=== PATIENT | female | born 1960 | race Caucasian/White ===

== ENCOUNTER → 2019-01-02 | Emergency (ER) | payer BC ==
[~2019-01-02] VITALS: Ht 162.6 cm; Wt 56.7 kg
[~2019-01-02] MED LIST: CEPHALEXIN500 MG ORAL; Lidocaine 2% MPF 5ml Vial INJ ONE; Tetanus/Diptheria/Pertussis Vaccine 0.5ml Syr IM ONE
[2019-01-02 10:14] VITALS: BP 115/70
--- NOTE | 2019-01-02 10:16 | NUR ---
ED Nurse Note: Pt walked in to Ed with family member due to laceration on left thumb by can. per pt, tried to open can using can first crusher. approx. 2.5 inch laceration noted. Martin EMT at the bed side to irrigated the wound. AAO x4. respirations even and non-labored noted. will wait for the further order.
--- NOTE | 2019-01-02 11:05 | NUR ---
HAND-OFF: Report given to TJ Lozano.
--- NOTE | 2019-01-02 11:11 | NUR ---
ED Nurse Note: received report from Halima SPENCER and endorsed care, xray done at the bedside, pt reports pain is better, scant serous drainage noted. will cont monitor.
--- NOTE | 2019-01-02 13:20 | Emergency Room Report ---
History of Present Illness General Chief Complaint: Laceration Source: Patient Present Illness HPI Patient states that she was opening a can. She states that she was unable to get the top of the can completely off and she grabbed it with her left thumb and it sliced her left thumb. She has no other injuries or complaints. Allergies: Coded Allergies: CIPROFLOXACIN (Verified Allergy, Unknown, 01/02/19) rash Patient History Past Medical History: none Social History: Denies: smoking, alcohol use, drug use Last Menstrual Period: menopause Reviewed Nursing Documentation: PMH: Agreed; PSxH: Agreed Nursing Documentation-PMH Past Medical History: No Stated History Review of Systems All Other Systems: negative except mentioned in HPI Physical Exam Vital Signs Date Time Temp Pulse Resp B/P (MAP) Pulse Ox O2 Delivery O2 Flow Rate FiO2 01/02/19 10:00 97.7 57 14 115/70 99 Room Air Sp02 EP Interpretation: reviewed, normal General Appearance: no apparent distress, alert, GCS 15, non-toxic Head: normocephalic, atraumatic Eyes: bilateral eye normal inspection ENT: hearing grossly normal, no angioedema, normal voice Neck: normal inspection Respiratory: no respiratory distress, no retraction, no accessory muscle use, speaking full sentences Rectal: deferred Musculoskeletal: back normal, gait/station normal, normal range of motion, other - L. thumb with a 2cm lacertion length x 1mm depth medial aspect of distal phalanx. Sensation intact throughout, 5/5 strenght, Flexion and extension intact. Neurologic: alert, oriented x3, responsive, motor strength/tone normal, sensory intact, speech normal Psychiatric: judgement/insight normal, memory normal, mood/affect normal, no suicidal/homicidal ideation Skin: warm/dry, well hydrated, other - See above in MSK exam Procedures Laceration/Wound Repair Laceration/Wound Repair : Consent: Verbal Wound Location: upper extremity Wound's Depth, Shape: superficial Wound Length (cm): 2 Wound Explored: clean Irrigated w/ Saline (ccs): 500 Betadine Prep?: Yes Anesthesia: 1% Lidocaine Volume Anesthetic (ccs): 2 Wound Repaired With: sutures Suture Size/Type: 6:0, nylon Number of Sutures: 6 Layer Closure?: No Sterile Dressing Applied?: Yes Splint Applied?: Yes Type of Splint Applied: Extension Patient Tolerated: Well Complications: None Medical Decision Making Diagnostic Impression: Primary Impression: Thumb laceration ER Course This patient has a superficial laceration of the left thumb. There does not appear to be any tendon involvement after exploring the wound. There does not appear to be any tendon damage as all of the flexion/extension is intact. The wound was repaired with sutures. See my procedure note. The wound was dressed and splinted. I'll place the patient on antibiotics prophylactically. Patient is given close return precautions and follow-up instructions. Other X-Ray Diagnostic Results Other X-Ray Diagnostic Results : X-Ray ordered: L. thumb # of Views/Limited Vs Complete: Complete Indication: Other - trauma Interpretation: no fractures Impression: No acute disease Electronically Signed by: Fiorella Valdovinos DO Last Vital Signs Date Time Temp Pulse Resp B/P (MAP) Pulse Ox O2 Delivery O2 Flow Rate FiO2 01/02/19 10:14 97.7 57 14 115/70 99 Room Air Status: improved Disposition: HOME, SELF-CARE Condition: Improved Referrals: NON PHYSICIAN (PCP) Patient Instructions: Laceration Care, Adult Fiorella Valdovinos DO Jan 02, 2019 13:20
--- NOTE | 2019-01-02 13:38 | NUR ---
ED Nurse Note: PT cleared to be d/c per ERMD, pt wound care splint and dressing done by network technicianreba Xiong, intact and patent, cms intact prior and after, cap refill <3sec, pt discharge/aftercare instruction provided with prescription sent electronically, pt education done via discussion and hand out, pt advised to follow up with pcp or return to ed, pt verbalized understanding and agrees with plan, pt vss, ambulatory w/ steady gait, resp even and unlabored on RA, all belongings left w/ pt.
[2019-01-02 13:40] VITALS: BP 116/69
--- NOTE | 2019-01-02 14:11 | Diagnostic Imaging Report ---
Indication: Trauma with laceration of the left thumb Technique: 3 views of the left thumb Comparison: none Findings: There is soft tissue irregularity, presumably reflecting stated clinical history of thumb laceration. Tiny osseous opacity projects at the posterolateral aspect of the interphalangeal joint on the oblique view, is probably degenerative in nature. Surrounding bones appear well-corticated. There are degenerative proliferative changes of the interphalangeal joint. No radiopaque foreign body Impression: No acute bony trauma or radiopaque foreign body demonstrated
== END | disposition home or self-care (01) ==
LOC: EMR 10:55
DX: S61.012A Laceration without foreign body of left thumb without damage to nail, initial encounter (principal); W26.8XXA Contact with other sharp object(s), not elsewhere classified, initial encounter; Y92.9 Unspecified place or not applicable; Z23 Encounter for immunization; Z88.1 Allergy status to other antibiotic agents
CPT/HCPCS: 90471; 90715; 99283